=== PATIENT | female | born 1990 | race Caucasian/White ===

== ENCOUNTER 2018-03-15 21:02 | Emergency (ER) | payer OTHER ==
[~2018-03-15] VITALS: Ht 170.2 cm; Wt 119.0 kg
[2018-03-15 21:08] VITALS: BP 157/113
== END 2018-03-15 23:49 | disposition left against medical advice (07) ==
LOC: ER 21:03
DX: K08.89 Other specified disorders of teeth and supporting structures (principal); Z53.21 Procedure and treatment not carried out due to patient leaving prior to being seen by health care provider

== ENCOUNTER 2018-06-01 15:24 | Emergency (ER) | payer BC, OTHER ==
[~2018-06-01] VITALS: Ht 170.2 cm; Wt 117.0 kg
[2018-06-01] MEDS ORDERED: penicillin V potassium 500mg tablet PO ONE (15:50)
[2018-06-01] MEDS ORDERED: HYDROcodone/acetaminophen 10/325mg tab PO ONE (15:50)
[2018-06-01] MEDS ORDERED: PENI500T2 PO (15:50)
[2018-06-01 16:08] VITALS: BP 134/76
== END 2018-06-01 16:09 | disposition home or self-care (01) ==
LOC: ER 15:25
DX: K03.2 Erosion of teeth (principal); Z79.899 Other long term (current) drug therapy
CPT/HCPCS: 99283

== ENCOUNTER 2020-06-07 00:53 | Emergency (ER) | payer BC ==
[~2020-06-07] VITALS: Ht 170.2 cm; Wt 113.6 kg
[2020-06-07] MEDS ORDERED: vancomycin/NS 1 GM ADD-VANTAGE 250 ML IV ONE (02:15)
[2020-06-07 02:40] LABS: BASOPHILS % (AUTO) 0.3 % (0-1); EOSINOPHILS # (AUTO) 0.1 X10'3 (0-0.9); EOSINOPHILS % (AUTO) 1.6 % (0-6); HEMATOCRIT 39.5 % (35.0-45.0); LYMPHOCYTES # (AUTO) 1.8 X10'3 (1.1-4.8); LYMPHOCYTES % (AUTO) 21.8 % (21-51); MEAN CORPUSCULAR HEMOGLOBIN 26.7 PG (27.0-31.0); MEAN CORPUSCULAR HGB CONC 32.9 g/dL (33.0-36.5); MEAN CORPUSCULAR VOLUME 81.1 FL (78-98); MEAN PLATELET VOLUME 9.4 FL (7.4-10.4); MONOCYTES # (AUTO) 0.9 X10'3 (0-0.9); NEUTROPHILS # (AUTO) 5.5 X10'3 (1.8-7.7); NEUTROPHILS % (AUTO) 65.3 % (42-75); PLATELET COUNT 230 X10'3 (140-440); RED BLOOD COUNT 4.87 X10'6 (4.20-5.60); RED CELL DISTRIBUTION WIDTH 13.3 % (11.5-14.5); WHITE BLOOD COUNT 8.4 X10'3 (4.5-11.0)
--- NOTE | 2020-06-07 02:43 | NUR ---
PIV PLACED, LABS AND BCX X2 DRAWN. VANCOMYCIN INFUSING IVPB. PT WITH STABLE VS. REPROTS PAIN TO THE RIGHT REDDENED LOWER LEG 8 OUT OF 10 AND REQUESTS PAIN MEDS. XRAY OF Daniel SERNA COMPLETED.
[2020-06-07] MEDS ORDERED: morphine 4 MG/ML inj SYRINge IV ONE (03:15)
--- NOTE | 2020-06-07 03:24 | NUR ---
DR GRADY UPDATED OF PTS PAIN MED REQUEST. PT HAS RIDE HOME WITH FRIEND, WHO IS NOW AT BEDSIDE. TO ORDER NARCOTIC FOR PAIN.
[2020-06-07] MEDS ORDERED: CEPH-585 PO (03:54)
[2020-06-07] MEDS ORDERED: SULF1TAB49 PO (03:54)
[2020-06-07] MEDS ORDERED: ACET-3068 PO (03:54)
[2020-06-07 03:57] VITALS: BP 140/86
== END 2020-06-07 04:44 | disposition home or self-care (01) ==
LOC: ER 00:53
DX: L03.115 Cellulitis of right lower limb (principal); M25.471 Effusion, right ankle; Z72.0 Tobacco use; Z79.2 Long term (current) use of antibiotics
CPT/HCPCS: 36415; 73600; 83605; 85025; 87040; 96365; 96366; 96375; 99284; J2270; J3370